=== PATIENT | female | born 1975 | race Caucasian/White ===

== ENCOUNTER → 2018-11-24 12:26 | Outpatient (CLI) | payer BC, SELFPAY ==
--- NOTE | 2018-11-24 12:30 | BI_ITS ---
MAMMOGRAPHY - BILATERAL SCREENING REASON FOR EXAM: Female, 43 years old. Routine annual screening examination. PERTINENT HISTORY: Non-contributory. Prior left stereotactic biopsy. TECHNIQUE: Digital bilateral breast shalom (3D mammographic acquisition) in the CC and MLO projections. 2-D mediolateral oblique (MLO) and craniocaudad (CC) views of both breasts were obtained. CAD: Full Field Digital Mammography with Computer Added Detection was performed. COMPARISON: Comparison is made with prior mammogram dated August 27, 2017 and October 07, 2016. FINDINGS: Breast Composition: The breasts are heterogeneously dense, which may obscure small masses. There now is evidence of a 3 cm x 1.8 cm well-defined nodule in the inferior medial anterior aspect of the left breast. Correlation with ultrasound is recommended. No other significant abnormalities are identified. BI/SCREENING MAMM (CAD), BILAT IMPRESSION: 3 cm x 1.8 cm nodular density in the inferior medial aspect of the left breast as described. Correlation with ultrasound is recommended. ASSESSMENT CATEGORY: BIRADS Category 0: Incomplete. Need additional imaging evaluation. A letter regarding these results will be sent to the patient by the facility within 30 days. Approximately 10% of breast cancers are not detected by mammography. A normal mammogram should not delay biopsy of a clinically suspicious abnormality. [id number] Electronically Signed: Michael Worley, at 13:35 EDT , Service support ,
== END ==
PROVIDERS: Family Provider Family Medicine; PCP Family Medicine; Referring Provider Obstetrics & Gynecology; Visit Provider Obstetrics & Gynecology
DX: Z12.31 Encounter for screening mammogram for malignant neoplasm of breast (principal)
CPT/HCPCS: 77063; 77067

== ENCOUNTER → 2018-11-30 15:15 | Outpatient (CLI) | payer BC, SELFPAY ==
--- NOTE | 2018-11-30 15:17 | US_ITS ---
STUDY: ULTRASOUND BREAST - LEFT REASON FOR EXAM: Female, 43 years old. LT ABNL MAMM TECHNIQUE: Axial and longitudinal images of the LEFT breast were performed with a high resolution ultrasound transducer. COMPARISON: None. FINDINGS: LEFT Breast: There is a lesion #1 in the lower inner quadrant. The lesion measures 2 x 0.9 x 2.6 cm in size. Clock notation: 8 o'clock position. Distance from nipple: 6 cm. Posterior Enhancement: No. Posterior Shadowing: None. Margins: Sharp and smooth. Echogenicity: Complex isoechoic with anechoic components. Compression effect on Shape: No change. US/Breast Limited Unilateral IMPRESSION: Probably benign lesion. ASSESSMENT CATEGORY: BIRADS Category 3: Probably Benign - Short-Interval Follow-up Suggested. A letter regarding these results will be sent to the patient by the facility within 30 days. Electronically Signed: Chikis Romero, at 16:32 EDT Tel , Service support ,
== END ==
PROVIDERS: Family Provider Family Medicine; PCP Family Medicine; Visit Provider Obstetrics & Gynecology
DX: R92.8 Other abnormal and inconclusive findings on diagnostic imaging of breast (principal)
CPT/HCPCS: 76642

== ENCOUNTER → 2018-12-16 16:23 | Outpatient (CLI) | payer BC, SELFPAY ==
--- NOTE | 2018-12-16 13:25 | BRBX_PTH ---
PATIENT: RADHIKA DSOUZA LOC: [facility] U#:[id number] AGE/SX: 50/F ROOM: RE12/16/[address]: Dr. Nhan Vinson MD : 1975 BED: DIS: SPEC #: [id number] RECD: 12/16/18 16:12 STATUS: MOLLY REBette #: [id number] CALISTA: 12/16/18 13:[address]: Nhan Vinson DEPT: SURGICAL PATHOLOGY RECD BY: Austin Graf ENTERED: 12/17/18 09:27 SP TYPE: BREAST BX OTHR DR: MD Dr. Shaun Patterson MD Tissues: Left breast, NOS Procedures: Surgery Specimen Level IV HEADER OPERATION: Ultrasound-guided mammotome biopsy left breast PRE-OP DIAGNOSIS: Abnormal mammogram left breast R92.8 TISSUE SUBMITTED: Left breast biopsy ISCHEMIC TIME: 1 minute FIXATION TIME: 30 minutes MICROSCOPIC DIAGNOSIS Left breast, ultrasound-guided mammotome core biopsy: Fibrocystic changes and intraductal hyperplasia without atypia. Negative for malignancy. SJ:parisa 12/18/18 COMMENT Correlation with clinical, radiologic findings and appropriate follow up are necessary. Please make reference to previous specimen ([id number]) left breast, retroareolar region, stereotactic needle core biopsy with diagnosis of nonproliferative fibrocystic change. MICROSCOPIC DESCRIPTION Slides are reviewed. GROSS DESCRIPTION Received in fixative is one container labeled with the patient's name and designated left breast biopsy. The specimen consists of multiple irregular fragments of brunner-red soft tissue that in aggregate measure 1.5 x 1.5 x 0.4 cm. The specimen is totally submitted in two cassettes. / CE:parisa 12/17/18 TC:5 CPT: 84051
[2018-12-16 13:55] VITALS: BMI 31.9
== END ==
PROVIDERS: Family Provider Family Medicine; PCP Family Medicine; Referring Provider Surgery; Visit Provider Surgery
DX: R92.8 Other abnormal and inconclusive findings on diagnostic imaging of breast (principal)
CPT/HCPCS: 88305

== ENCOUNTER → 2019-01-28 | Outpatient (CLI) | payer BC, SELFPAY ==
[2019-01-28 07:10] VITALS: BMI 31.9
[2019-01-28 15:04] LABS: Squamous Epithelial Cells - UA 0 SEEN /hpf (5-10)
[2019-01-28 15:10] LABS: Color, Urine Yellow (Yellow); Glucose, Dipstick Normal (Normal); Ketone-Dipstick Negative (Negative); Leukocyte Esterase-Dipstick 100 /ul (Negative); Nitrite-Dipstick Negative (Negative); Occult Blood-Urine 150 /ul (Negative); Protein-Dipstick 30 mg/dl (Negative); Urine Bilirubin Dipstick Negative (Negative); Urine Clarity Cloudy (Clear); Urine Urobilinogen Normal (Normal)
[2019-01-28 15:17] LABS: Bacteria 2+ /hpf (None Seen); Mucous, Urine 1+ /hpf (<or=2+); Red Blood Cells-Urine 5-10 SEEN /hpf (0-5); Triple Phosphate Crystals Ur 1+ /hpf (<or=1+); White Blood Cells 5-10 SEEN /hpf (0-5)
== END | disposition home or self-care (01) ==
LOC: LABSPEC 14:41
PROVIDERS: Family Provider Family Medicine; PCP Family Medicine; Referring Provider Physician Assistant; Visit Provider Physician Assistant
DX: R30.0 Dysuria (principal)
CPT/HCPCS: 81001; 87077; 87086; 87088

== ENCOUNTER → 2019-02-03 | Outpatient (CLI) | payer BC, SELFPAY ==
[2019-01-28 07:10] VITALS: BMI 31.9
--- NOTE | 2019-02-03 14:00 | LES_PTH ---
PATIENT: RADHIKA DSOUZA LOC: [facility] U#:[id number] AGE/SX: 43/F ROOM: RE02/03/[address]: Dr. Eliza Fontanez MD : 1975 BED: DIS: 02/03/2019 SPEC #: [id number] RECD: 02/03/19 15:25 STATUS: MOLLY FELISA #: [id number] CALISTA: 02/03/19 14:[address]: Eliza Fontanez DEPT: SURGICAL PATHOLOGY RECD BY: Austin Graf Tissues: Skin of leg, NOS Procedures: Surgery Specimen Level IV HEADER OPERATION: Not noted PRE-OP DIAGNOSIS: Left leg mole TISSUE SUBMITTED: Left leg mole MICROSCOPIC DIAGNOSIS Skin lesion of left leg, biopsy: Seborrheic keratosis, inflamed. AM:parisa 02/05/19 MICROSCOPIC DESCRIPTION Slides are reviewed. GROSS DESCRIPTION Received in fixative is one container labeled with the patient's name and designated mole of left leg. The specimen consists of a shave biopsy of skin measuring 0.8 x 0.7 x 0.25 cm. The skin surface is burnner and has a nodular appearance. The base of the shave biopsy is inked black and the tissue is bisected. The specimen is totally submitted in one cassette. / CE:parisa 02/04/19 TC:5 CPT: 66029
== END | disposition home or self-care (01) ==
LOC: LABSPEC 15:35
PROVIDERS: Family Provider Family Medicine; PCP Family Medicine; Referring Provider Family Medicine; Visit Provider Family Medicine
DX: D22.72 Melanocytic nevi of left lower limb, including hip (principal)
CPT/HCPCS: 88305

== ENCOUNTER → 2019-05-31 | Outpatient (CLI) | payer BC, SELFPAY ==
[2019-01-28 07:10] VITALS: BMI 31.9
--- NOTE | 2019-05-31 09:33 | US_ITS ---
STUDY: ULTRASOUND BREAST - LEFT REASON FOR EXAM: Female, 43 years old. Six-month follow-up for left breast mass. TECHNIQUE: Axial and longitudinal images of the LEFT breast were performed with a high resolution ultrasound transducer. COMPARISON: Comparison is made with prior ultrasound of the left breast dated November 30, 2018. FINDINGS: LEFT Breast: There is a 1.5 cm x 2.7 cm x 1.1 cm complex solid and cystic mass at the 8:00 position of the breast at 6 cm from the nipple. A tissue clip marker is seen within it. US/Breast Limited Unilateral IMPRESSION: Stable nodular density. A clip marker from prior biopsy is seen within it. ASSESSMENT CATEGORY: BIRADS Category 2: Benign. A letter regarding these results will be sent to the patient by the facility within 30 days. Electronically Signed: Michael Worley, at 10:59 EDT , Service support ,
--- NOTE | 2019-05-31 09:33 | BI_ITS ---
MAMMOGRAPHY - UNILATERAL DIAGNOSTIC: LEFT BREAST REASON FOR EXAM: Female, 43 years old. Six-month follow-up for recent ultrasound biopsy. PERTINENT HISTORY: Non-contributory. TECHNIQUE: Digital unilateral breast shalom (3D mammographic acquisition) in the CC and MLO projections. 2-D mediolateral oblique (MLO) and craniocaudad (CC) views of both breasts were obtained. CAD: Full Field Digital Mammography with Computer Added Detection was performed. Compression spot views of the left breast were obtained as well. COMPARISON: Comparison is made with prior study dated November 24, 2018. FINDINGS: Breast Composition: The breasts are heterogeneously dense, which may obscure small masses. There are no dominant masses or suspicious calcifications. A tissue clip marker is seen in the inferior medial aspect of the left breast. A tissue clip marker is also seen in the retroareolar region of the breast. This is unchanged. No other significant abnormalities are identified. There has been no significant change since the prior study. BI/DIAG MAMM W/CAD, UNILAT IMPRESSION: Stable unilateral diagnostic mammogram. One year follow-up mammogram recommended. (A) ASSESSMENT CATEGORY: BIRADS Category 2: Benign. A letter regarding these results will be sent to the patient by the facility within 30 days. Approximately 10% of breast cancers are not detected by mammography. A normal mammogram should not delay biopsy of a clinically suspicious abnormality. Electronically Signed: Michael Worley, at 12:59 EDT , Service support ,
== END | disposition home or self-care (01) ==
PROVIDERS: Family Provider Family Medicine; PCP Family Medicine; Referring Provider Surgery; Visit Provider Surgery
DX: R92.8 Other abnormal and inconclusive findings on diagnostic imaging of breast (principal)
CPT/HCPCS: 76642; 77065

== ENCOUNTER → 2019-07-19 | Outpatient (CLI) | payer BC, SELFPAY ==
[2019-07-19 06:25] VITALS: BMI 31.9
[2019-07-19 11:26] LABS: Mucous, Urine 0 SEEN /hpf (<or=2+)
[2019-07-19 11:28] LABS: Color, Urine Yellow (Yellow); Glucose, Dipstick Normal (Normal); Ketone-Dipstick Negative (Negative); Leukocyte Esterase-Dipstick 500 /ul (Negative); Nitrite-Dipstick Negative (Negative); Occult Blood-Urine 150 /ul (Negative); Protein-Dipstick Negative (Negative); Specific Gravity, Urine 1.005 (1.002-1.030); Urine Bilirubin Dipstick Negative (Negative); Urine Clarity Sl. Cloudy (Clear); Urine Urobilinogen Normal (Normal); Urine pH 6.5 (5.0 - 8.0)
[2019-07-19 11:34] LABS: Bacteria 1+ /hpf (None Seen); Red Blood Cells-Urine 0-5 SEEN /hpf (0-5); Squamous Epithelial Cells - UA 0-5 SEEN /hpf (5-10); White Blood Cells 50-100 SEEN /hpf (0-5)
== END | disposition home or self-care (01) ==
LOC: LABSPEC 11:16
PROVIDERS: Family Provider Family Medicine; PCP Family Medicine; Referring Provider Physician Assistant; Visit Provider Physician Assistant
DX: R30.0 Dysuria (principal); R35.0 Frequency of micturition
CPT/HCPCS: 81001; 87077; 87086; 87088; 87186

== ENCOUNTER → 2019-12-06 | Outpatient (CLI) | payer BC, SELFPAY ==
[2019-07-19 06:25] VITALS: BMI 31.9
--- NOTE | 2019-12-06 11:58 | BI_ITS ---
MAMMOGRAPHY - BILATERAL SCREENING REASON FOR EXAM: Female, 44 years old. Routine annual screening examination. PERTINENT HISTORY: Non-contributory. Prior left stereotactic and needle biopsies. TECHNIQUE: Digital bilateral breast radha (3D mammographic acquisition) in the CC and MLO projections. 2-D mediolateral oblique (MLO) and craniocaudad (CC) views of both breasts were obtained. CAD: Full Field Digital Mammography with Computer Added Detection was performed. COMPARISON: Comparison is made with prior examination dated October 07, 2016 and November 24, 2018. FINDINGS: Breast Composition: The breasts are heterogeneously dense, which may obscure small masses. There is a 3.1 sided by 2.4 cm well-defined nodule in the inferior medial aspect of the left breast. This was demonstrated to be a cyst on prior ultrasound. No other significant abnormalities are identified. There has been no significant change since the prior study. BI/SCREEN MAMM (CAD) W/RADHA BILAT IMPRESSION: Stable bilateral screening mammogram. Yearly follow-up mammogram recommended. (A) ASSESSMENT CATEGORY: BIRADS Category 2: Benign. A letter regarding these results will be sent to the patient by the facility within 30 days. Approximately 10% of breast cancers are not detected by mammography. A normal mammogram should not delay biopsy of a clinically suspicious abnormality. [id number] Electronically Signed: Michael Worley, at 13:19 EDT , Service support ,
== END | disposition home or self-care (01) ==
LOC: OPBI 11:56
PROVIDERS: PCP Family Medicine; Referring Provider Obstetrics & Gynecology; Visit Provider Obstetrics & Gynecology
DX: Z12.31 Encounter for screening mammogram for malignant neoplasm of breast (principal)
CPT/HCPCS: 77063; 77067

== ENCOUNTER → 2020-12-06 07:01 | Outpatient (CLI) | payer BC, SELFPAY ==
[2019-07-19 06:25] VITALS: BMI 31.9
--- NOTE | 2020-12-06 07:03 | BI_ITS ---
MAMMOGRAPHY - BILATERAL SCREENING REASON FOR EXAM: Female, 45 years old. Routine annual screening examination. PERTINENT HISTORY: Non-contributory. Prior left stereotactic breast biopsy and left ultrasound-guided breast biopsy. TECHNIQUE: Digital bilateral breast radha (3D mammographic acquisition) in the CC and MLO projections. 2-D mediolateral oblique (MLO) and craniocaudad (CC) views of both breasts were obtained. CAD: Full Field Digital Mammography with Computer Added Detection was performed. COMPARISON: Comparison is made with prior study 12/06/2019 and 11/24/2018 FINDINGS: Breast Composition: The breasts are heterogeneously dense, which may obscure small masses. Stable 2.7 cm x 2.7 cm well-defined nodule in the inferior medial aspect of the left breast. A tissue clip marker is seen within. This was demonstrated to be a cyst on prior sonogram. Stable scattered microcalcifications in the retroareolar alveolar region of the left breast. No other significant abnormalities are identified. There has been no significant change since the prior study. BI/SCRN MAMM (CAD)W/RADHA BILAT IMPRESSION: Stable bilateral screening mammogram. Yearly follow-up mammogram recommended. (A) ASSESSMENT CATEGORY: BIRADS Category 2: Benign. A letter regarding these results will be sent to the patient by the facility within 30 days. Approximately 10% of breast cancers are not detected by mammography. A normal mammogram should not delay biopsy of a clinically suspicious abnormality. [id number] Electronically Signed: Michael Worley MD at 8:36 EDT , Service support ,
== END ==
PROVIDERS: PCP Family Medicine; Referring Provider Obstetrics & Gynecology; Visit Provider Obstetrics & Gynecology
DX: Z12.31 Encounter for screening mammogram for malignant neoplasm of breast (principal)
CPT/HCPCS: 77063; 77067

== ENCOUNTER → 2022-02-04 | Outpatient (CLI) | payer BC, SELFPAY ==
--- NOTE | 2022-02-04 12:15 | BI_ITS ---
MAMMOGRAPHY - BILATERAL SCREENING REASON FOR EXAM: Female, 46 years old. Routine annual screening examination. PERTINENT HISTORY: Non-contributory. Prior left stereotactic breast biopsy and left ultrasound-guided breast biopsy. TECHNIQUE: Digital bilateral breast radha (3D mammographic acquisition) in the CC and MLO projections. 2-D mediolateral oblique (MLO) and craniocaudad (CC) views of both breasts were obtained. CAD: Full Field Digital Mammography with Computer Added Detection was performed. COMPARISON: Mammogram from 01/06/2021, 01/06/2020. Left breast diagnostic mammogram from 05/31/2019. Left breast ultrasound from 05/31/2019. FINDINGS: Breast Composition: The breasts are heterogeneously dense, which may obscure small masses. There is a stable 2.9 x 2.6 cm nodule in the inferior inner quadrant adjacent to the tissue marker. This was previously demonstrated to be a cyst on prior diagnostic ultrasound. Stable scattered punctate benign-appearing calcifications. No other significant abnormalities are identified. There has been no significant change since the prior study. BI/SCRN MAMM (CAD)W/RADHA BILAT IMPRESSION: Stable bilateral screening mammogram. Yearly follow-up mammogram recommended. (A) ASSESSMENT CATEGORY: BIRADS Category 2: Benign. A letter regarding these results will be sent to the patient by the facility within 30 days. Approximately 10% of breast cancers are not detected by mammography. A normal mammogram should not delay biopsy of a clinically suspicious abnormality. [id number] Electronically Signed: Jose Lehman, at 12:56 EDT ,
== END | disposition home or self-care (01) ==
LOC: OPBI 12:13
PROVIDERS: PCP Family Medicine; Visit Provider Obstetrics & Gynecology
DX: Z12.31 Encounter for screening mammogram for malignant neoplasm of breast (principal)
CPT/HCPCS: 77063; 77067

== ENCOUNTER → 2022-12-16 | Outpatient (CLI) | payer BC, SELFPAY ==
--- NOTE | 2022-12-16 11:25 | RAD_ITS ---
STUDY: X-RAY - LEFT KNEE REASON FOR EXAM: Female, 47 years old. Pain and swelling following a twisting injury. TECHNIQUE: 4 view(s) of the knee. COMPARISON: None. FINDINGS: Normal visualized distal femur. Normal visualized proximal tibia and fibula. Normal proximal tibiofibular articulation. Normal medial femorotibial compartment. Normal lateral femorotibial compartment. Normal patellofemoral articulation. Moderate-sized joint effusion. RAD/Knee 4 or More Views IMPRESSION: Moderate-sized joint effusion. Electronically Signed: Michael Worley MD at 15:39 EDT ,
== END | disposition home or self-care (01) ==
LOC: MTRAD 11:21
PROVIDERS: PCP Family Medicine; Referring Provider Family Medicine; Visit Provider Family Medicine
DX: S89.92XA Unspecified injury of left lower leg, initial encounter (principal); X58.XXXA Exposure to other specified factors, initial encounter
CPT/HCPCS: 73564

== ENCOUNTER → 2024-03-25 | Outpatient (CLI) | payer OTHER, SELFPAY ==
--- NOTE | 2024-03-25 12:34 | BI_ITS ---
MAMMOGRAPHY - BILATERAL SCREENING REASON FOR EXAM: Female, 48 years old. Routine annual screening examination. PERTINENT HISTORY: Non-contributory. History of prior left stereotactic breast biopsy. TECHNIQUE: Digital bilateral breast radha (3D mammographic acquisition) in the CC and MLO projections. 2-D mediolateral oblique (MLO) and craniocaudad (CC) views of both breasts were obtained. CAD: Full Field Digital Mammography with Computer Added Detection was performed. COMPARISON: Comparison is made with prior study dated February 04, 2022 and December 06, 2020. FINDINGS: Breast Composition: The breasts are heterogeneously dense, which may obscure small masses. Stable 2.6 cm x 2.3 cm well-defined nodule in the inferior slightly medial aspect of the left breast. A tissue clip marker is seen adjacent to the nodule. No other significant abnormalities are identified. There has been no significant change since the prior study. BI/SCRN MAMM (CAD)W/RADHA BILAT IMPRESSION: Stable bilateral screening mammogram. Yearly follow-up mammogram recommended. (A) ASSESSMENT CATEGORY: BIRADS Category 2: Benign. A letter regarding these results will be sent to the patient by the facility within 30 days. Approximately 10% of breast cancers are not detected by mammography. A normal mammogram should not delay biopsy of a clinically suspicious abnormality. [id number] Electronically Signed: Michael Worley MD at 13:56 EDT ,
== END | disposition home or self-care (01) ==
LOC: OPBI 12:33
PROVIDERS: PCP Family Medicine; Referring Provider Obstetrics & Gynecology; Visit Provider Obstetrics & Gynecology
DX: Z12.31 Encounter for screening mammogram for malignant neoplasm of breast (principal)
CPT/HCPCS: 77063; 77067

== ENCOUNTER → 2025-04-15 | Outpatient (CLI) | payer OTHER, SELFPAY ==
--- NOTE | 2025-04-15 13:58 | BI_ITS ---
EXAM: DIAG MAMM W/CAD, BILAT; BILAT BRST RADHA STAND ALONE; BREAST LIMITED UNILATERAL 04/15/2025 CLINICAL HISTORY: 49-year-old female presents with palpable concern in the left breast felt by the clinician. Family history of breast cancer in 2 cousins. TECHNIQUE: DIAG MAMM W/CAD, BILAT; BILAT BRST RADHA STAND ALONE; BREAST LIMITED UNILATERAL. COMPARISON: Prior exam(s) dated 03/25/2024, 02/04/2022, 12/06/2020. FINDINGS: MAMMOGRAM: TISSUE DENSITY: The breasts are heterogeneously dense, which may obscure small masses. The mammogram demonstrates that the patient has dense breasts. Supplemental screening with whole breast ultrasound or MRI may be considered for further evaluation. Left breast: In the area of clinician interest in the upper-outer left breast there are a few circumscribed masses, which have not significantly changed when compared to multiple priors and likely represents cysts. Otherwise, there are no suspicious calcifications or architectural distortions in the left breast. Right breast: There is a mass in the lower inner right breast at posterior depth. ULTRASOUND: Left breast: Ultrasound performed of the upper-outer left breast. There are a few adjacent cysts in the left breast at 3 o'clock 3 cm from the nipple, the largest measures 1.1 x 0.8 x 0.6 cm. There is another cyst that has debris at 3 o'clock 3 cm from the nipple measuring 0.8 x 0.7 x 0.5 cm. Also, there is another cyst in the left breast at 1 o'clock 5 cm from the nipple measuring 0.5 x 0.4 x 0.4 cm. Right breast: Ultrasound performed of the medial right breast. There is a normal intramammary lymph node in the right breast at 4 o'clock 8 cm from the nipple measuring 1.2 x 0.9 x 0.6 cm. This is a probable correlate for the mammographic finding. BI/Bilat Brst Radha Stand Alone IMPRESSION: 1. The area of clinician interest in the left breast corresponds to a few cherri gn cysts. 2. Benign right intramammary lymph node. 3. There is no evidence of malignancy in either breast. OVERALL FINAL ASSESSMENT BI-RADS 2: BENIGN RECOMMENDATION: Routine annual follow-up in 1 Year A letter with findings and recommendations will be mailed to the patient. Reading Location: [id number]
== END | disposition home or self-care (01) ==
PROVIDERS: PCP Family Medicine; Referring Provider Obstetrics & Gynecology; Visit Provider Obstetrics & Gynecology
DX: N63.21 Unspecified lump in the left breast, upper outer quadrant (principal); R92.30 Dense breasts, unspecified
CPT/HCPCS: 76642; 77062; 77066; G0279